=== PATIENT | female | born 1985 | race Caucasian/White ===

== ENCOUNTER 2025-03-06 07:34 | Emergency (ER) | payer OTHER ==
[~2025-03-06] VITALS: Ht 162.6 cm; Wt 56.7 kg
[2025-03-06] MEDS ORDERED: LEVO75TA PO (07:52)
[2025-03-06 08:24] LABS: *URINE HCG, QUAL NEGATIVE (NEGATIVE)
[2025-03-06 10:00] VITALS: BP 101/50; O2SAT 99
== END 2025-03-06 10:01 | disposition home or self-care (01) ==
LOC: ER 07:34
DX: S16.1XXA Strain of muscle, fascia and tendon at neck level, initial encounter (principal); E03.9 Hypothyroidism, unspecified; M25.551 Pain in right hip; M54.6 Pain in thoracic spine; Z79.890 Hormone replacement therapy; V43.52XA Car driver injured in collision with other type car in traffic accident, initial encounter; Y93.89 Activity, other specified; Y92.89 Other specified places as the place of occurrence of the external cause; Y99.8 Other external cause status
CPT/HCPCS: 72125; 72170; 84703; A4606; A4663